=== PATIENT | female | born 1940 | race Caucasian/White ===

== ENCOUNTER 2016-07-28 13:00 | Day surgery (SDC) | payer MEDICARE ==
[~2016-07-28] VITALS: Ht 165.1 cm; Wt 114.8 kg
[~2016-07-28 13:00] MED LIST: CALC-140 PO; CYT5 PO; ERGO2000 PO; FURO20TA PO; GABA-500 PO; K10 PO; LETR2.5T4 PO; LEVO125T6 PO; LOSA50TA37 PO; Lactated Ringer's 1,000 ML IV ONE; METR45GE TOP; MULT-946 PO; Sodium Chloride LOK Flush 10 mL Syringe IVFLUSH PRN
[2016-07-28] MEDS ORDERED: Propofol 10,000 mCg/mL 20 mL Inj ONE (13:01)
[2016-07-28] MEDS ORDERED: EPHEDrine/NS 5 mg/mL 5 mL Syringe ONE (13:01)
[2016-07-28 13:32] VITALS: BP 158/94; PULSE 78; RESP 14; O2SAT 94
[2016-07-28] MEDS ORDERED: Lactated Ringer's 1,000 ML IV SCH ×2 (14:26→14:45)
--- NOTE | 2016-07-28 14:26 | PCM.HPANE ---
Patient Data Date of Service: July 28, 2016 Surgeon Admitting Provider: Attending Provider:Janelle Quinonez MD Primary Care Physician:Bebe Payne Other Provider:Lewis Cowan Anesthesia Reason for Visit History Of Colon Polyp Ht/WT & BMI Height (Feet): 5 Height (Inches): 5 Weight (Kilograms): 114.76 Body Mass Index 42.00 Allergies Coded Allergies: NSAIDS (Non-Steroidal Anti-Inflamma (Verified Allergy, Severe, REDNESS EDEMA, 06/27/11) hydrocodone (Verified Allergy, Severe, N&V, 06/27/11) lisinopril (Verified Allergy, Severe, COUGH, 06/24/11) Iodine and Iodide Containing Produc (Verified Allergy, Unknown, 07/26/16) codeine (Verified Adverse Reaction, Mild, NAUSEA, 06/28/11) oxycodone (Verified Adverse Reaction, Mild, NAUSEA, 06/28/11) tramadol (Verified Adverse Reaction, Unknown, Hives, 07/26/16) Past Anesthesia History Anesthesia History: Positive for:: Anesthesia Reactions (GENERAL/NAUSEA AND VOMITTING), Denies:: Abnormal Airway, Difficult Intubation, Fam Anesthesia Reaction, Fam Malignant Hypertherm, Malignant Hyperthermia Diabetes History Hx Diabetes?: No MRSA MRSA: No Medications Home Meds Incl Beta Efrain: No Reported Medications Ergocalciferol (Vitamin D2) (Vitamin D2)2,000 Unit Tablet2,000 Unit PO DAILY 07/26/16 Metronidazole (Metronidazole Gel)1 Applic/0.25 Gm Gel1 Applic TOP BID #45 GM Ref 0 07/26/16 Losartan Potassium 50 Mg Jkrsrn02 Mg PO DAILY 07/26/16 Levothyroxine 125 Mcg [id number] Mcg PO DAILY For Thyroid Replacement Ref 0 07/26/16 Letrozole 2.5 Mg Tablet2.5 Mg PO DAILY Ref 0 07/26/16 Gabapentin 100 Mg [id number] Mg PO DAILY 30 Days Ref 0 07/26/16 Calcium Carbonate/Vitamin D3 (Calcium + Vitamin D Tablet)1 Each Tablet1 Each PO DAILY 07/26/16 MULTIVIT, IRON, MIN NO. 8, FA-Expunged Drug, (ZVETKVXGHII-U-Gbffkmph Drug, Do Not Renew!)1 Each Tablet1 Each PO DAILY 06/24/11 Furosemide-Expunged Drug, Do Not Renew! (Lasix-Expunged Drug, Do Not Renew!)20 Mg Ursjtt32 Mg PO DAILY 06/22/11 Potassium Chl-Expunged Drug, Do Not Renew! (T-KLU-Jvvlecme Drug, Do Not Renew!) 10 Meq Tabsr10 Meq PO BIDWM 06/22/11 Liothyronine-Expunged Drug, Do Not Renew! (Cytomel-Expunged Drug, Do Not Renew!) 5 Mcg Tab5 Mcg PO DAILY 06/22/11 Discontinued Reported Medications CHOLECALCIFEROL-Expunged Drug, Do Not Renew! (VITAMIN D-Expunged Drug, Do Not Renew!)400 Unit Tablet Po Daily UNABLE TO VERIFY DOSE 06/24/11 Calc/D3/Mag/Zn/Melting Supervisor/Dov/[place] (Calcium 600/Vit D3-Expunged, Do Not Renew!)1 Each Tablet1 Each PO DAILY 06/24/11 Aspirin-Expunged Drug, Do Not Renew! (Aspirin EC-Expunged Drug, Do Not Renew!) 325 Mg Btpdxx368 Mg PO PRN INSTRUCTED TO STOP 06/24/11 Famotidine-Expunged Drug, Do Not Renew! 20 Mg Jwrdmt53 Mg PO DAILY 06/24/11 Losartan-Expunged Drug, Do Not Renew! 100 Mg Ekayqx586 Mg PO DAILY 06/22/11 Levothyroxine-Expunged Drug, Do Not Renew! (Levoxyl-Expunged Drug, Do Not Renew! )112 Mcg Pfbwof255 Mcg PO DAILY 06/22/11 Atenolol-Expunged Drug, Do Not Renew! 25 Mg Fjpygn33 Mg PO DAILY 06/22/11 History History of ENT Problems?: Yes HEENT History: Denies:: Abnormal Airway Difficult Intubation Dysphagia Hearing Problem Denture Type: None Teeth Condition: Within Normal Limits Hx of Heart Problems?: Yes Cardiovascular History: Positive for:: Hypertension Denies:: AICD Atrial Fibrillation Chest Pain Pacemaker Valvular Heart Disease Hx of Respiratory Problem?: Yes Respiratory History: Positive for:: Use of C-PAP Machine Hx Neurologic Problems?: No Neurological History: Denies:: CVA Hx of GI Problems?: Yes Hx of Problems?: Yes HX of Peritoneal Dialysis: No Female Hx: Denies:: Currently Skin History: Denies:: History Skin Disorders? Pressure Ulcers Hx Musculoskeletal Problems?: Yes Musculoskeletal History: Positive for:: Joint Replacement (KNEE) Musculoskeletal Trauma (HX OF FX) Denies:: Fibromyalgia Hx of Psycho/Social Problems?: No Psycho Social History: Denies:: Anxiety Hx Depression Hx Surgeries?: Yes (L BR CA, LAP KATLYN, HYSTO W/ OOPH, L TKA, BLADDER SLING, FRACT REPAIRS) Hx Any Other Health Problems?: Yes Other History: Positive for:: Thyroid Disease Denies:: Cancer Endocrine Disease Hospitalization Hx Diabetes: No Hx Alcohol Use: Yes (RARE)Hx Substance Use: No Stop/Bang Treated for Sleep Apnea?: Yes Do You Have a CPAP Machine?: Yes (COMPLIANT WITH NIGHTLY USE) Risk Assessment Category Category 1A: Patient has history of documented sleep apnea, and HAS NOT received any narcotic, sedative or anesthesia administration during this stay. Category 1B: Patient has history of documented sleep apnea, and HAS received any narcotic , sedative or anesthesia administration during this stay Category 2: Patient has SUSPECTED Obstructive Sleep Apnea, and HAS received any narcotic , sedative or anesthesia administration during this stay. Category 3: Patient has SUSPECTED Obstructive Sleep Apnea and HAS NOT received narcotic, sedative or anesthesia administration during this stay. Category 4: Outpatient in Procedural Areas with known sleep apnea or who screen positive for High Risk via the STOP/BANG questionnaire. Exam Exam Vital Signs Vital Signs Date Time Temp Pulse Resp B/P Pulse Ox O2 Delivery O2 Flow Rate FiO2 07/28/16 13:32 36.9 78 14 158/94 94 Room Air General Appearance: Alert, Oriented X3 HEENT/AIRWAY: MP 2 Lungs: Clear to Auscultation Heart: Exam Unremarkable Meds/Labs/Diagnostics Admission Meds Current Medications Lactated Ringer's (Lr) 1,000 ml @ 10 mls/hr Q24H ONCE IV Last administered on 07/28/16t 13:45; Start 07/28/16 at 06:00; Stop 07/29/16 at 05:59 Plan Impression Patient chart reviewed, patient interviewed and anesthestic plan with risks, benefits, and alternatives discussed, and informed consent obtained. NPO per Anesth. Guidelines: Yes ASA Physical Status: ASA2 Mod Systemic Disease Anesthetic Plan: MAC Bene/Risks/Altern/Consents: Yes HP Complete Prior to Induction: Yes Bruno Montelongo MD July 28, 2016 14:26
[2016-07-28] MEDS ORDERED: Ondansetron 2 mg/mL 2 mL Inj IVPUSH PRN ×2 (14:30→14:45)
[2016-07-28] MEDS ORDERED: MetoCLOpramide 5 mg/mL 2 mL Inj IVPUSH PRN ×2 (14:30→14:45)
[2016-07-28 15:36] VITALS: BP 131/69; PULSE 77; RESP 16; O2SAT 96
[2016-07-28 15:41] VITALS: BP 125/71; PULSE 71; RESP 14; O2SAT 95
[2016-07-28 15:55] VITALS: BP 131/79; PULSE 68; RESP 12; O2SAT 97
--- NOTE | 2016-07-28 17:00 | PCM.ANEP1 ---
Post Anesthesia Phase 1 PACU Phase 1 Assessment Date of Service: July 28, 2016 Vital Signs Vital Signs Date Time Temp Pulse Resp B/P Pulse Ox O2 Delivery O2 Flow Rate FiO2 07/28/16 15:55 68 12 131/79 97 Room Air 07/28/16 15:41 71 14 125/71 95 Room Air 07/28/16 15:36 77 16 131/69 96 Room Air 07/28/16 13:32 36.9 78 14 158/94 94 Room Air Anesthetic Administered: MAC Level of Alertness: Awake, talking Pain: No Nausea or Vomiting: No Cardiovascular Function and Hy: Yes Oxygen Delivery: Room Air Lungs: Clear to Auscultation Complications: No Follow up Care: No Bruno Montelongo MD July 28, 2016 17:00
--- NOTE | 2016-07-28 23:28 | ENDO ---
[address] [address] ENDOSCOPY PROCEDURE PATIENT: GERMAINE GARCIA : 1940 MR#: [id number] ADMIT: 07/28/2016 JOB ID: [id number] PREPROCEDURE DIAGNOSIS: History of colon polyps. POSTPROCEDURE DIAGNOSIS: History of colon polyps. PROCEDURE PERFORMED: 1. Colonoscopy. 2. Cold forceps biopsies x2. SURGEON: Janelle Quinonez MD. INSTRUMENT: [employer] PCF H 180 AL. ANESTHESIA: MAC. PREPARATION: Good. FINDINGS: 1. Extensive blanco diverticulosis. 2. Lipoma in the ascending colon, biopsied. 3. Normal terminal ileum. 4. 5 mm rectal polyp, removed with cold biopsy forceps. 5. Internal hemorrhoids. HISTORY OF PRESENT ILLNESS: This is a 76-year-old woman who had her previous colonoscopy greater than 10 years ago in [place]. She had diverticulosis and polyps were removed, but she did not have the report. She also had a recent positive fecal occult blood test. DESCRIPTION OF PROCEDURE: The patient was brought to the endoscopy suite, and placed in left lateral decubitus position. Moderate anesthesia was induced by the anesthesiologist. A digital rectal examination was normal. External examination revealed a tiny external hemorrhoidal skin tag, noninflamed. The colonoscope was advanced and she was found to have significant diverticulosis, more extensive in the left and sigmoid colon, with rare diverticula in the transverse and right colon. The cecum was identified and the terminal ileum was cannulated. 5 cm of it was visualized and it appeared normal. There was a lipoma in the ascending colon, a small cold forceps biopsy was taken. The colonoscope was slowly withdrawn over the course of 19 minutes. The only other mucosal abnormality was a rectal polyp at 10 cm, which was 5 mm in size. It was removed with cold forceps. Retroflexed examination of the rectum revealed internal hemorrhoids. The colonoscope was withdrawn. The patient tolerated the procedure well. ESTIMATED BLOOD LOSS: None. SPECIMENS: 1. Lipoma of the ascending colon. 2. Rectal polyp x1. COMPLICATIONS: None. ESTIMATED BLOOD LOSS: None. MTDD
--- NOTE | 2016-08-01 14:57 | PATH ---
SURGICAL PATHOLOGY Attending Physician:Janelle Quinonez MD CASE STATUS: Signed Out PATIENT NAME: GERMAINE GARCIA PID: [id number] : 1940 DATE COLLECTED:07/28/2016 00:00 SPECIMEN: 1: Colon, Biopsy 2: Rectum, Biopsy CLINICAL HISTORY: 1. ASCENDING LIPOMA BX 2. RECTAL POLYP FINAL DIAGNOSIS: 1.SPECIMEN DESIGNATED ASCENDING COLON LIPOMA: SMALL FRAGMENT OF COLON MUCOSA WITH NO EVIDENCE OF SUBMUCOSAL LIPOMA. Negative for dysplasia and malignancy. 2.RECTAL POLYP: TUBULAR ADENOMA. ICD10 CODE D12.8 GROSS DESCRIPTION: The specimen is received in two formalin filled containers labeled with the patient's name. 1). The specimen a sublabeled "ascending lipoma" and consists of an extremely tiny less then 0.1 CM light wilson portion of tissue which is wrapped and entirely submitted in cassette 1A. 2). The specimen is sublabeled "rectal polyp" and consists of a 0.2 x 0.2 x 0.2 CM portion of tissue which is entirely submitted in cassette 2A. 07/29/2016 [facility] MICRO DESCRIPTION: See diagnosis. ICD-9 CODES: CPT CODES: 1: 40595 2: 35378 Electronically Signed Out Esequiel Costello MD [facility] Pathology [facility] [address], [place] [address] Technical component performed at [facility], [facility] [address], [address]
== END 2016-07-28 23:59 | disposition home or self-care (01) ==
LOC: END 13:00
PROVIDERS: ATTEND Surgery
DX: Z12.11 Encounter for screening for malignant neoplasm of colon (principal); Z86.010 Personal history of colon polyps; D12.8 Benign neoplasm of rectum; K64.8 Other hemorrhoids; K57.30 Diverticulosis of large intestine without perforation or abscess without bleeding; I10 Essential (primary) hypertension; M19.90 Unspecified osteoarthritis, unspecified site; G47.33 Obstructive sleep apnea (adult) (pediatric); E03.9 Hypothyroidism, unspecified; K21.9 Gastro-esophageal reflux disease without esophagitis; E66.01 Morbid (severe) obesity due to excess calories; Z68.41 Body mass index [BMI] 40.0-44.9, adult; Z85.3 Personal history of malignant neoplasm of breast; Z92.3 Personal history of irradiation; Z86.718 Personal history of other venous thrombosis and embolism; Z90.710 Acquired absence of both cervix and uterus; Z92.21 Personal history of antineoplastic chemotherapy; Z96.652 Presence of left artificial knee joint
CPT/HCPCS: 45380; J7120